=== PATIENT | female | born 1950 | race African-American/Black ===

== ENCOUNTER 2016-10-05 08:17 | Day surgery (SDC) | payer MEDICARE, BC ==
[~2016-10-05] VITALS: Ht 167.6 cm; Wt 108.9 kg
[2016-10-05] MEDS ORDERED: LACTATED RINGERS 1,000 ML IV SCH ×2 (09:25→09:30)
[2016-10-05] MEDS ORDERED: HYDR-2510 PO (09:33)
[2016-10-05] MEDS ORDERED: LOSA50TA20 PO (09:33)
[2016-10-05] MEDS ORDERED: FENTANYL CITRATE/PF 50MCG/ML 2ML VIAL ONE (09:41)
[2016-10-05] MEDS ORDERED: MIDAZOLAM HCL 2 MG/2 ML VIAL ONE (09:41)
[2016-10-05] MEDS ORDERED: LIDOCAINE HCL 1% 20ML VIAL (Pyxis) INJ ONE (09:42)
[2016-10-05] MEDS ORDERED: PROPOFOL 200MG/20ML VIAL IV ONE (09:42)
[2016-10-05] MEDS ORDERED: DEXAMETHASONE 4MG/ML 1ML VIAL ONE (09:43)
[2016-10-05] MEDS ORDERED: ONDANSETRON HCL 4MG/2ML VIAL ONE (09:44)
[2016-10-05] MEDS ORDERED: DIPHENHYDRAMINE 50MG/ML VIAL ONE (09:45)
[2016-10-05] MEDS ORDERED: METOCLOPRAMIDE HCL 10MG/2ML VIAL ONE (09:56)
[2016-10-05] MEDS ORDERED: ONDANSETRON HCL 4MG/2ML VIAL IV PRN ×2 (10:15→10:30)
[2016-10-05] MEDS ORDERED: HYDROMORPHONE HCL/PF 2MG/ML CPJ IV PRN (10:15)
[2016-10-05] MEDS ORDERED: HYDROCODONE/ACETAMINOPHEN 5/325MG TABLET PO PRN ×2 (10:30)
== END 2016-10-05 11:40 | disposition home or self-care (01) ==
LOC: OR 08:17
PROVIDERS: ATTEND Obstetrics & Gynecology Obstetrics
DX: D25.9 Leiomyoma of uterus, unspecified (principal); I10 Essential (primary) hypertension; M19.90 Unspecified osteoarthritis, unspecified site; E11.9 Type 2 diabetes mellitus without complications; E66.01 Morbid (severe) obesity due to excess calories
CPT/HCPCS: 58120; 88305; 93005; J1100; J1200; J2250; J2405; J2765; J3010; J3490; J7120; J2704